=== PATIENT | female | born 1955 | race Caucasian/White ===

== ENCOUNTER 2023-01-12 15:23 | Outpatient (CLI) | payer MEDICARE | END 2023-01-12 15:24 | disposition home or self-care (01) | LOC: CSHMAMMO 15:23 | PROVIDERS: ATTEND Family Medicine | DX: Z12.31 Encounter for screening mammogram for malignant neoplasm of breast (principal); Z85.850 Personal history of malignant neoplasm of thyroid; Z85.820 Personal history of malignant melanoma of skin | CPT/HCPCS: 77063; 77067 ==

== ENCOUNTER 2024-02-20 15:30 | Outpatient (CLI) | payer MEDICARE | END 2024-02-20 15:31 | disposition home or self-care (01) | LOC: CSHMAMMO 15:30 | PROVIDERS: ATTEND Family Medicine | DX: Z12.31 Encounter for screening mammogram for malignant neoplasm of breast (principal); Z85.850 Personal history of malignant neoplasm of thyroid; Z85.820 Personal history of malignant melanoma of skin | CPT/HCPCS: 77063; 77067 ==